=== PATIENT | male | born 1975 | race Caucasian/White ===

== ENCOUNTER 2020-01-04 10:42 | Outpatient (CLI) | payer OTHER, SELFPAY ==
--- NOTE | ~2020-01-04 | XR_ITS ---
EXAMINATION: XR chest 2V DATE: 01/04/2020 10:58 INDICATION: Pneumonia, unspecified, cough TECHNIQUE: PA and lateral views of the chest are obtained. COMPARISON: 06/09/2008 FINDINGS: The lungs are free of acute opacities. There is no pleural effusion or pneumothorax. The ca rdiomediastinal silhouette is normal. The visualized bones and soft tissues are unremarkable. IMPRESSION: 1. No acute cardiopulmonary abnormality. Reviewed, dictated and finalized at location A. EL DRIER
== END 2020-01-04 10:43 | disposition home or self-care (01) ==
PROVIDERS: PCP Family Medicine; Visit Provider Physician Assistant
DX: R05 Cough (principal)
CPT/HCPCS: 71046

== ENCOUNTER 2021-07-07 07:30 | Outpatient (RCR) | payer OTHER, SELFPAY ==
--- NOTE | 2021-06-23 09:43 | PTOPEVAL ---
PHYSICAL THERAPY EVALUATION AND PLAN OF CARE Thank you for referring Luis Dickens to [facility].? The patient is scheduled to be seen for therapy? 1-2x/week for 4 weeks. Please review, sign, date and return this plan of care LULI. I agree with and certify that the following plan of care is medically necessary. Referring Physician Date Attending Provider: Ignacio Graham MD Evaluation Diagnosis cervical radiculopathy Onset March 2021 Subjective Information Reports a pain that is between Query Text:As Reported By Patient/ the shoulder blade and spine Family on the left side. Initially was doing chiropractice, heat, and traction that provided temporary relief. He always felt better when he left, but the relief never last more than 24 hours. Gradually increasing over time and is worse now than in March. Self Report Pain Assessment Left Scapula Reported Pain Level 5 Pain Description Aching Pain Frequency Chronic,Continuous Lowest Pain Intensity 3 Greatest Pain Intensity 8 Pain Score Pain Score 5: Self Report Interventions Used Interventions Used By Clinicians Exercise,Joint Mobilization Pain Relief Interventions Used By None Patient Cervical and Lumbar ROM Cervical ROM Cervical Flexion (0-60) 40 Query Text:Active in Degrees Cervical Extension (0-70) 60 Query Text:Active in Degrees Cervical Rotation Right (0-90) 65 Query Text:Active in Degrees Cervical Rotation Left (0-90) 65 Query Text:Active in Degrees Upper Extremity Range of Motion General Upper Extremity Range of Motion Reason Not Measured WFL/Left,WFL/Right Upper Extremity Muscle Strength Testing Scapular/Shoulder Right Scapular Retraction - Rhomboid 4 Good Scapular Retraction - Middle Trapezius 4 Good Scapular Retraction - Lower Trapezius 4 Good Shoulder Flexion Strength 5 Normal Shoulder Abduction Strength 5 Normal Shoulder Medial Rotation Strength 5 Normal Shoulder Lateral Rotation Strength 5 Normal Left Scapular Retraction - Rhomboid 3 Fair Scapular Retraction - Middle Trapezius 3 Fair Scapular Retraction - Lower Trapezius 3 Fair Shoulder Flexion Strength 5 Normal Shoulder Abduction Strength 5 Normal Shoulder Medial Rotation Strength 5 Normal Shoulder Lateral Rotation Strength 4+ Good + Muscle Length Testing Muscle Length Testing Scalene Group Muscle Length (L) Moderate Tightness Query Text: Levaetor Scapulae Muscle Length (R) Mild Tightness,(L) Mild
--- NOTE | 2021-07-08 16:46 | PCPTNOTE ---
Patient called & cancelled scheduled appointment this date due to MD wanting MRI done.
--- NOTE | 2021-07-14 13:02 | PCPTNOTE ---
Called and cancelled appointments for this week and next stating that he is going to follow up with orthopedic doctor and will decide if he wants to continue PT after that.
--- NOTE | 2021-08-05 08:10 | PCPTNOTE ---
PHYSICAL THERAPY DISCHARGE NOTE Attending Provider: Ignacio Graham MD Patient:Luis Dickens Date of :1975 Patient has not returned for any further treatments since 07/07/2021, therefore (he/she) will be discharged at this time. Patient?s initial visit was on 06/23/2021. After his last attended visit, he cancelled his remaining appointments because he was going to get an MRI. I have not heard from patient since this time. Thank you for referring this patient to [facility]. Please review, sign, date and return this discharge summary LULI. I have been updated about the patient's current status and I agree with discharge from the above service at this time. Referring Physician Date
== END 2021-08-05 14:28 | disposition home or self-care (01) ==
LOC: ANHPT 07:30
PROVIDERS: PCP Family Medicine; Visit Provider Orthopaedic Surgery
DX: M54.2 Cervicalgia (principal)
CPT/HCPCS: 97014; 97110; 97140; 97162; G0283

== ENCOUNTER → 2021-07-09 06:58 | Outpatient (CLI) | payer OTHER, SELFPAY ==
--- NOTE | ~2021-07-09 | MR_ITS ---
EXAMINATION: MR thoracic spine wo con EXAM DATE: 07/09/2021 07:34 INDICATION: M54.9 - Dorsalgia, unspecified dorsalgia . Upper and mid back pain. TECHNIQUE: Multi-sequential, multiplanar MR images of the thoracic spine were obtained without contra st. Sagittal T1, T2, T2 fat saturation, axial T2 weighted images reviewed. There is no prior study for comparison. FINDINGS: Mild diffuse thoracic facet arthropathy. The thoracic discs are confined to their margins. The vertebral bodies are aligned in the AP dimension. Vertebral body and disc heights are well-mainta ined. There are no suspicious marrow signal abnormalities. The spinal cord signal intensity and intri nsic morphology is normal. Paraspinal soft tissue is unremarkable. No appreciable scoliosis. IMPRESSION: Mild thoracic facet arthropathy Reviewed, dictated and finalized at location B.
== END ==
PROVIDERS: PCP Family Medicine; Visit Provider Orthopaedic Surgery
DX: M54.9 Dorsalgia, unspecified (principal)
CPT/HCPCS: 72146

== ENCOUNTER → 2021-07-11 08:15 | Outpatient (CLI) | payer OTHER, SELFPAY ==
--- NOTE | ~2021-07-11 | US_ITS ---
EXAMINATION: US abdomen limited DATE: 07/11/2021 08:31 INDICATION: Left upper quadrant abdominal pain. Splenomegaly. TECHNIQUE: Multiple grayscale and Doppler ultrasound images of the abdomen were obtained. COMPARISON: CT abdomen and pelvis 09/19/2010 FINDINGS: The spleen is normal in size and measures 11.0 cm. IMPRESSION: 1. Normal spleen. Reviewed, dictated and finalized at location A. IMPRESSION: 1. Normal spleen.
== END ==
PROVIDERS: PCP Family Medicine; Visit Provider Family Medicine
DX: R16.1 Splenomegaly, not elsewhere classified (principal)
CPT/HCPCS: 76705

== ENCOUNTER → 2021-07-27 08:42 | Outpatient (CLI) | payer OTHER, SELFPAY ==
--- NOTE | ~2021-07-27 | MR_ITS ---
EXAMINATION: MR cervical spine wo con EXAM DATE: 07/27/2021 09:23 INDICATION: Cervicalgia, neck and upper back pain. Left shoulder pain. TECHNIQUE: Multi-sequential, multiplanar MR images of the cervical spine were obtained without contra st. Axial T2, axial T2 MERGE sequence. Sagittal T1, T2, T2 fat saturation images also obtained. Cor relation is made to cervical x-ray 06/02/2021. FINDINGS: Mild disc disease from C3 through C7. The spinal cord signal intensity and intrinsic morph ology is normal. Cervicomedullary junction is normal in appearance. There are no suspicious marrow si gnal abnormalities. Paraspinal soft tissue is unremarkable. Level by level evaluation: C2-C3: Disc does not extend beyond the endplate margin. Uncovertebral joint arthropathy: Mild right. Facet joint arthropathy: Mild bilateral. Neural foraminal stenosis: No stenosis. Central canal stenosis: No stenosis. C3-C4: There is a mild diffuse disc bulge. Uncovertebral joint arthropathy: Mild to moderate left, mild right. Facet joint arthropathy: Mild bilateral. Neural foraminal stenosis: Mild bilateral. Central canal stenosis: Mild. C4-C5: There is a minimal diffuse disc bulge. Uncovertebral joint arthropathy: Mild bilateral. Facet joint arthropathy: Mild bilateral. Neural foraminal stenosis: No stenosis. Central canal stenosis: No stenosis. C5-C6: There is a mild diffuse disc bulge asymmetric to the left, slightly indenting the left anterio r aspect of spinal cord but no cord edema. Uncovertebral joint arthropathy: Moderate bilateral. Facet joint arthropathy: Mild to moderate bilateral. Neural foraminal stenosis: Mild to moderate right, mild left. Central canal stenosis: Mild. C6-C7: There is a mild diffuse disc bulge. Uncovertebral joint arthropathy: Mild to moderate left, mild right. Facet joint arthropathy: Mild bilateral. Neural foraminal stenosis: Mild bilateral. Central canal stenosis: Mild. C7-T1: Disc does not extend beyond the endplate margin. Uncovertebral joint arthropathy: None. Facet joint arthropathy: Mild to moderate right, mild left. Neural foraminal stenosis: No stenosis. Central canal stenosis: No stenosis. IMPRESSION: 1. Mild to moderate cervical spondylosis. Reviewed, dictated and finalized at location B.
== END ==
PROVIDERS: PCP Family Medicine; Visit Provider Orthopaedic Surgery
DX: M47.892 Other spondylosis, cervical region (principal)
CPT/HCPCS: 72141

== ENCOUNTER 2022-03-29 04:27 | Emergency (ER) | payer OTHER, SELFPAY ==
[2022-03-29] VITALS (12 sets, daily range): BP systolic 116–146; BP diastolic 72–111; PULSE 67–85; RESP 15–16; TEMP 36.2; O2SAT 93–100
--- NOTE | ~2022-03-29 | CT_ITS ---
EXAMINATION: CT abdomen pelvis w con DATE: 03/29/2022 05:40 INDICATION: Right upper quadrant abdominal pain. TECHNIQUE: Computed tomography (CT) of the abdomen and pelvis was performed with 75 mL Omnipaque 300 intravenous contrast. Automated exposure control and iterative reconstruction technique were employed . The dose-length product was 1221.18 mGy-cm. COMPARISON: CT abdomen and pelvis 09/19/2010 FINDINGS: The visualized portions of the lung bases demonstrate mild atelectasis. No pleural effusion . The heart size is normal. No pericardial effusion. There is diffuse hepatic steatosis with focal sp aring in the gallbladder fossa. There are gallstones in the gallbladder including in the gallbladder neck. The gallbladder is at the upper limits of normal in size. The pancreas, spleen, adrenal glands, and left kidney are normal. There is a 12 mm cyst in right kidney. The prostate is moderately enlarg ed. There is diverticulosis of the colon without evidence of diverticulitis. There are no dilated loo ps of bowel. The appendix is normal. There are no pathologically enlarged lymph nodes. There is no fr ee intraperitoneal fluid. There are changes of umbilical hernia repair. There is mild thoracolumbar s pondylosis. IMPRESSION: 1. Cholelithiasis. 2. Diffuse hepatic steatosis. Reviewed, dictated and finalized at location A.
--- NOTE | ~2022-03-29 | US_ITS ---
EXAMINATION: US abdomen limited DATE: 03/29/2022 07:49 INDICATION: Right upper quadrant abdominal pain. TECHNIQUE: Multiple grayscale and Doppler ultrasound images of the abdomen were obtained. COMPARISON: CT abdomen and pelvis 03/29/2022 FINDINGS: The visualized portions of the head, body, and tail of the pancreas are normal. There is di ffuse hepatic steatosis with focal sparing in the gallbladder fossa. There are gallstones in the gall bladder, which is normal in size. No gallbladder wall thickening or sonographic Bowman sign. The comm on duct is normal and measures 4 mm. IMPRESSION: 1. Cholelithiasis. No evidence of acute cholecystitis. 2. Diffuse hepatic steatosis. Reviewed, dictated and finalized at location A.
[2022-03-29] MEDS: MORPHINE SULFATE (*CRX) 4 MG/ML INJ IV PUSH (04:43)
[2022-03-29] MEDS: SODIUM CHLORIDE 0.9% IV 1,000 ML 999 ML IV CONT (04:43)
--- NOTE | 2022-03-29 04:48 | ED.ABDPAIN ---
HPI - Abdominal Pain General Chief Complaint: Abdominal Pain Stated Complaint: right sided abdominal pain Time Seen by Provider: 03/29/22 04:36 Source: patient History of Present Illness HPI narrative: Patient presents with right upper quadrant pain. History he woke up around 2:00 with his symptoms these and try different body positions and counts alleviate symptoms and was unsuccessful as pain appear to be getting worse so he came to the ER for evaluation. Pain is sharp, constant, radiates to his back there are no clear aggravating or alleviating factors. Denies any nausea vomiting or diarrhea denies any recent fevers, cough, congestion denies any chest pain or shortness of breath. Related Data Home Medications Medication Instructions Recorded Confirmed fexofenadine 180 mg tablet 180 mg PO DAILY 06/02/21 03/17/22 melatonin 5 mg capsule 5 mg PO cap 06/02/21 03/17/22 Allergies Allergy/AdvReac Type Severity Reaction Status Date / Time No Known Allergies Allergy Mild Verified 03/29/22 04:38 Review of Systems Review of Systems: CONSTITUTIONAL: Denies fever, chills, or sweats. EYES: Denies visual changes, redness, or discharge. ENT: Denies rhinorrhea, congestion, sore throat, or otalgia. CARDIOVASCULAR: Denies chest pain, palpitations, or edema. RESPIRATORY: Denies cough or dyspnea. GASTROINTESTINAL: Denies nausea, vomiting, or diarrhea. GENITOURINARY: Denies dysuria or hematuria. SKIN: Denies rash or itching. MUSCULOSKELETAL: Denies back pain, joint pain, or myalgia. NEUROLOGIC: Denies headache, numbness, dizziness, or weakness. PSYCHIATRIC: Denies anxiety or depression. 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 HEAD: Normocephalic, atraumatic. EYES: PERRLA and EOMI. ENT: Nares clear, no rhinorrhea or epistaxis. Mucous membranes moist. NECK: Supple. No masses. No JVD ABDOMEN: Moderate tenderness in the right upper quadrant with guarding negative Bowman's soft,nondistended, EXTREMITIES: Normal range of motion. No edema. SKIN: Warm, dry, no rash. NEURO: No focal deficits. Alert and oriented x3. PSYCH: Normal mood and affect. Course Reevaluation(s) Reevaluation #1: Patient is feeling improved after supportive therapies patient was updated on work-up thus far. Patient is pending ultrasound evaluation due to his CT imaging findings. Patient was signed out to Dr. Irvin pending ultrasound. Date: 03/29/22 Time: 06:52 Vital Signs Vital signs: Vital Signs Temperature 36.2 C L 03/29/22 04:29 Pulse Rate 85 03/29/22 04:29 Respiratory Rate 16 03/29/22 04:29 Blood Pressure 146/94 H 03/29/22 04:29 Pulse Oximetry 100 03/29/22 04:29 Temperature 36.2 C L 03/29/22 04:29 Pulse Rate 85 03/29/22 04:29 Respiratory Rate 16 03/29/22 04:29 Blood Pressure 116/72 03/29/22 06:01 Pulse Oximetry 97 03/29/22 06:15 MDM - Abdominal Pain Lab Data Result diagra
[2022-03-29 04:57] LABS: Basophils Absolute Auto 0.1 K/mm3 (0.0-0.1); Basophils Percent Auto 0.8 % (0.2-1.2); Eosinophils Absolute Auto 0.2 K/mm3 (0-0.3); Eosinophils Percent Auto 2.6 % (0-4.4); Hematocrit 45.6 % (42.0-52.0); Hemoglobin 15.3 g/dL (14.0-18.0); Immature Granulocyte Absolute 0.04 K/mm3 (0.00-0.031); Immature Granulocyte Percent A 0.4 % (0-0.5); Lymphocytes Absolute Auto 1.91 K/mm3 (0.9-3.2); Lymphocytes Percent Auto 21.3 % (18.3-44.2); Mean Corpuscular HGB Conc 33.6 g/dl (32-36); Mean Corpuscular Volume 83.5 fl (80-100); Mean Platelet Volume 11.3 fl (7.4-10.4); Monocytes Absolute Auto 0.9 K/mm3 (0.1-0.6); Monocytes Percent Auto 9.9 % (2.6-8.5); Neutrophils Absolute Auto 5.8 K/mm3 (1.3-6.7); Platelet Count Result 236 k/mm3 (150-375); Red Blood Count 5.46 M/mm3 (4.6-6.20); Red Cell Distribution Width 13.6 % (11.5-14.5)
[2022-03-29 05:07] LABS: Alanine Aminotransferase 48 U/L (6-50); Albumin Level 4.2 g/dL (3.5-5.1); Alkaline Phosphatase 56 U/L (38-126); Anion Gap 8 mmol/L (8-16); Aspartate Amino Transferase 29 U/L (17-59); Bilirubin,Total 0.3 mg/dL (0.2-1.3); Blood Urea Nitrogen 16 mg/dL (9-20); Calcium 9.1 mg/dL (8.4-10.2); Carbon Dioxide 26 mmol/L (22-30); Chloride 108 mmol/L (98-107); Estimated CRCL calculation 97 ml/min; Estimated Glomerular Filt Rate > 60; Glucose 126 mg/dL (65-110); Lipase 210 U/L (23-300); Potassium 3.9 mmol/L (3.4-5.0); Sodium 142 mmol/L (137-145)
[2022-03-29 05:14] LABS: Appearance Urine Clear (Clear); Bilirubin Urine Negative (Negative); Blood Urine Negative (Negative); Color Urine Yellow (Yellow); Glucose Urine UA Negative (Negative); Ketones Urine Negative (Negative); Leukocyte Esterase Ur Negative LEU/UL (Negative); Nitrate Urine Negative (Negative); Protein Urine Negative (Negative); Specific Grav Ur >= 1.030 (1.001-1.035); Urobilinogen Urine 0.2 mg/dL (<2.0); pH Urine 5.5 (5.0-9.0)
[2022-03-29 05:25] LABS: RBC Urine 0-2 /hpf (0-2); WBC Urine 0-3 /hpf
[2022-03-29 05:26] LABS: Add Urine Microscopic? NO
--- NOTE | 2022-03-29 05:27 | PC.NURSE ---
Patient in CT at this time.
[2022-03-29] MEDS: ONDANSETRON INJ 4 MG/2 ML VIAL IV PUSH (05:38)
--- NOTE | 2022-03-29 07:30 | PC.NURSE ---
Pt to U/S via w/c at this time.
== END 2022-03-29 09:07 | disposition home or self-care (01) ==
PROVIDERS: Emergency Medicine; Emergency Provider Emergency Medicine; PCP Family Medicine
DX: R10.11 Right upper quadrant pain (principal); I10 Essential (primary) hypertension; E66.9 Obesity, unspecified; Z68.31 Body mass index [BMI] 31.0-31.9, adult
CPT/HCPCS: 36415; 74177; 76705; 80053; 81003; 83690; 85025; 96361; 96374; 96375; 99284; J2270; J2405; J7030; Q9967

== ENCOUNTER 2022-05-04 10:05 | Outpatient (CLI) | payer OTHER, SELFPAY ==
--- NOTE | 2022-05-04 10:11 | ECG_ITS ---
Measurements Intervals Berthold Rate: 78 P: 30 WV: 156 QRS: 27 QRSD: 113 T: 45 QT: 359 QTc: 410 Interpretive Statements SINUS RHYTHM INTRAVENTRICULAR CONDUCTION DELAY NO PREVIOUS ECG AVAILABLE FOR COMPARISON Electronically Signed On 05-04-2022 10:58:14 CDT by Neal Thurman M.D.
[2022-05-04 10:36] LABS: Amylase 88 U/L (30-110)
== END 2022-05-04 10:06 | disposition home or self-care (01) ==
LOC: ANHSURGERY 10:08
PROVIDERS: PCP Family Medicine; Visit Provider Surgery
DX: Z01.818 Encounter for other preprocedural examination (principal); K80.20 Calculus of gallbladder without cholecystitis without obstruction; I10 Essential (primary) hypertension; I45.9 Conduction disorder, unspecified
CPT/HCPCS: 36415; 82150; 86850; 86900; 86901; 93005

== ENCOUNTER 2022-05-07 02:17 | Day surgery (SDC) | payer OTHER, SELFPAY ==
[2022-05-03 12:16] VITALS: BMI 30.2
--- NOTE | 2022-05-03 12:17 | PC.NURSE ---
Addendum entered by Iona Guzman RN 05/04/22 07:51: MAY TAKE VENLAFAXINE MORNING OF SURGERY. Original Note: Report to the Outpatient Waiting Room, entrance under the green pavilion located off [address], at time _1230_ on date _[id number]_. OR Time: _230pm_. - You and your visitor will be asked a series of questions to screen for COVID 19 for your protection. - Only one visitor is allowed at this time. - The patient visitor is requested to leave or wait in car when not with patient. - A mask is required within the hospital. Patients may have clear liquids (water, carbonated beverages, clear teas, apple juice) until 3 hours prior to surgery with a maximum of 20 ounces. - No food from midnight until time of surgery Take the following medications with a SIP of water the morning of surgery: __None Medications to discontinue per physician ____None Date to take last dose Please no make-up, nail amharic, hairspray, perfume, deodorant, or body powder the day of surgery. No jewelry (including any body piercings) or valuables the day of surgery, leave them at home. Please take a shower or bath the night before, or the morning of, surgery with an antibacterial soap. Wear comfortable, loose fitting clothing. - Jewelry must be removed prior to entering the operating room. Rings and piercings that are not removed may be cut off. - The hospital will not accept responsibility for valuables. - Please leave all valuables, including medications, at home the day of surgery. If you are going home after surgery, a licensed class b truck driver must drive you home. - NO public transportation without another adult. - We recommend that an adult stay with you for 24 hours following discharge. - We also recommend that you do not drive, make important decision, drink alcoholic beverages, or take any drugs that were not prescribed by your health care provider for at least 24 hours after your discharge time. Follow any additional instructions given to you from your surgeon. If you or anyone in your household have experienced Covid symptoms in the past week, please notify your surgeon or the nurse liaison at the phone number below for possible testing. Telephone instructions given to ___Patient and asked if any additional questions and then verbalized understanding. Patient advised to call surgeon office or pre surgery nurse liaison [phone] if any additional questions.
[2022-05-07] VITALS (11 sets, daily range): BP systolic 111–137; BP diastolic 73–94; PULSE 69–99; RESP 15–19; TEMP 36.2–37.1; O2SAT 97–100
--- NOTE | 2022-05-07 13:08 | WPDANESEPPF ---
Anes - Initial Pre Proc Eval Procedure: Operation Date: 05/07/22 14:30 Proposed Procedures p Laparoscopic Cholecystectomy, Possible Open - Derick Painting DO Date/Time: 05/07/22 13:08 Surgeon: Derick Painting DO Pre Op Diagnosis: Symptomatic Cholelithiasis Patient Data Age: 46 Gender: M Height: 1.78 m Weight: 95.5 kg Allergies Allergy/AdvReac Type Severity Reaction Status Date / Time No Known Allergies Allergy Mild Verified 05/07/22 13:03 Home Medications Medication Instructions Recorded Confirmed Type omeprazole 40 mg capsule,delayed 40 mg PO QAM #90 caps 11/11/20 05/07/22 Rx release fenofibrate 160 mg tablet See Rx Instructions .Route 08/27/21 05/07/22 Rx .COMPLEX #90 tabs lisinopril 10 mg tablet See Rx Instructions .Route 08/27/21 05/07/22 Rx .COMPLEX #90 tabs venlafaxine 150 mg See Rx Instructions .Route 08/27/21 05/07/22 Rx capsule,extended release 24 hr .COMPLEX #90 caps ezetimibe 10 mg tablet See Rx Instructions .Route 11/18/21 05/07/22 Rx .COMPLEX #90 tabs testosterone cypionate 200 mg/mL 200 mg IM MONTHLY #10 mL 12/31/21 05/07/22 Rx intramuscular oil zolpidem 10 mg tablet 10 mg PO .qhs #30 tabs 05/03/22 05/07/22 Rx Patient hx anesthesia problems: none Family hx anesthesia problems: none Results Review: All pre-operative results and documents have been reviewed as part of the pre-operative evaluation. 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 Gender identity (if verbalized by the patient): Male Sexual Orientation (if Verbalized by the Patient): Straight or Heterosexual Spiritual care concerns: No Anes - Eval Final PreProcedure Day of Procedure 05/07/22 13:08 Patient weight: obese Heart: regular rate and rhythm Lungs: clear to auscultation Airway: Mallampati scale class II Neurological: alert and oriented Last oral intake: >/= 8 hours ASA classification: II Anesthetic plan: proceed Anesthesia type and monitoring: general ETT and standard monitoring Results Review: All pre-operative results and documents have been reviewed as part of the pre-operative evaluation. Informed Consent: The patient's anesthetic plan and its attendant risks and benefits were discussed with the patient/family/POA. Questions were solicited and answers provided to the satisfaction of the patient/family/POA.
[2022-05-07] MEDS: ACETAMINOPHEN 500 MG TABLET 1000 MG PO (13:10)
--- NOTE | 2022-05-07 13:48 | WPDHPUPDATE1 ---
History and Physical Update Update Date/Time: 05/07/22 13:48 History and Physical has been reviewed, including an updated exam of the patient. There are NO changes in the patient's condition. Risks, benefits, and alternatives have been discussed and questions answered. Patient agrees to proceed with procedure.
[2022-05-07] MEDS: KETOROLAC 15 MG/ML VIAL (*BKC) IV PUSH (13:51)
[2022-05-07] MEDS: LACTATED RINGERS 1,000 ML 30 ML IV CONT (13:51)
[2022-05-07] MEDS: ceFAZolin 2 GM/D5W 50 ML 2 GM/50 ML BAG IVPB (14:07)
[2022-05-07] MEDS: LIDO 1%/EPINEPHRINE 1:100,000 10 ML VIAL 20 ML INFILTRATE (14:26)
--- NOTE | 2022-05-07 14:54 | W.PM.PROC2 ---
Procedure Note - Detailed Date of Procedure 05/07/22 Pre-op Diagnosis Symptomatic Cholelithiasis Post-op Diagnosis Same Procedure Performed Laparoscopic Cholecystectomy Surgeon Derick Painting, DO Anesthesia General and Local (0.5% bupivacaine) Indications This is a 46-year-old man who presented for right upper quadrant abdominal pain. About 1 month ago he presented to the emergency department with acute onset of abdominal pain. CT and ultrasound showed evidence of cholelithiasis but no evidence of acute cholecystitis. He was then discharged from the emergency department and followed up in the office. Discussions were made with the patient about treatment options and decision was made to proceed with laparoscopic cholecystectomy, possible open. Findings Laparoscopic cholecystectomy was performed. The gallbladder had some mild wall thickening and contained several stones. The cystic duct appeared normal in size. No other significant abnormalities were noted. I inspected the periumbilical region and the previous umbilical hernia repair appeared to be intact. Mesh was visible within the abdominal cavity, but cannot rule out mesh within the preperitoneal space or onlay space. The gallbladder was removed and sent to the lab for pathology. Description of Procedure Procedure as well as risks, benefits, and alternatives were discussed with patient. Written consent was obtained and placed in chart prior to procedure. The patient was brought back to surgical suite. Patient was placed in supine position on operating table. Time-out was done to confirm patient and procedure. Patient was then intubated by the anesthesia department. Abdomen was prepped and draped in sterile fashion using chlorhexidine prep. 0.5% bupivacaine with epinephrine was infiltrated at each site of incision. A 5 millimeter incision was made near the umbilicus, and a 5 millimeter Optiview trocar was advanced through the abdominal layers under direct visualization. Once inside the abdominal cavity, carbon dioxide was insufflated to create a pneumoperitoneum. The camera was inserted and the abdomen was inspected. No immediate abnormalities were identified. The patient was placed in reverse Trendelenburg position and rotated slightly to the left. An 11 millimeter incision was made in the subxiphoid region, and an 11 millimeter trocar was inserted under direct visualization. Two 5 millimeter incisions were made in the right upper quadrant, and two 5 millimeter trocars were inserted under direct visualization. The gallbladder was identified and grasped at the fundus and retracted superiorly. It was then grasped at the infundibulum retracted laterally. Careful dissection around the neck of the gallbladder was performed using blunt dissection with a [place] grasper and hook electrocautery. The cystic duct was identified, and a window was created behind it. The cystic artery was also identified and a window was created behind it. The critical view of safety was identified, visualizing the cystic duct running directly into the neck of the gallbladder, and the cystic artery running directly into the wall of the gallbladder. A 5 millimeter clip professor criminal justice was then used to place 2 clips proximally and 1 clip distally on both the cystic duct and cystic artery. They were then both transected using endoscopic scissors. Once safely away from the nader hepatitis, the gallbladder was dissected free from the liver bed using hook electrocautery. Hemostasis was achieved along the way. The gallbladder was removed completely and then removed through the subxiphoid port. The liver bed was then inspected. Hemostasis appeared adequate, and our clips appeared secure. The area was gently irrigated with sterile saline. No other abnormalities were seen. The patient was flattened out in bed, and 1 final inspection was made around the abdominal cavity. The subxiphoid port was removed, and a Terry britt
[2022-05-07] MEDS: oxyCODONE HCL (*CRX) 5 MG TAB IR PO (15:50)
[2022-05-07] MEDS: ONDANSETRON INJ 4 MG/2 ML VIAL IV PUSH (16:08)
[2022-05-07] MEDS: fentaNYL CITRATE INJ (*CRX) 100 MCG/2 ML VIAL 25 MCG IV PUSH (16:17)
== END 2022-05-07 16:50 | disposition home or self-care (01) ==
PROVIDERS: PCP Family Medicine; Visit Provider Surgery
PROC: 0FT44ZZ Resection of Gallbladder, Percutaneous Endoscopic Approach (ICD-10-PCS; CPT 47562; principal; 2022-05-07 14:30)
DX: K80.10 Calculus of gallbladder with chronic cholecystitis without obstruction (principal); I10 Essential (primary) hypertension; E66.9 Obesity, unspecified; Z68.29 Body mass index [BMI] 29.0-29.9, adult
CPT/HCPCS: 47562; 36415; 82150; 86850; 86900; 86901; 88304; 93005; A9270; J0690; J1100; J1885; J2250; J2405; J2704; J2710; J3010; J7030; J7120

== ENCOUNTER 2022-10-11 09:40 | Outpatient (CLI) | payer OTHER, SELFPAY ==
--- NOTE | ~2022-10-11 | XR_ITS ---
XR chest 2V 10/11/2022 09:58 Indication: Cough Procedure: PA and lateral views of the chest Comparison: Comparison to multiple prior studies sequentially, with oldest reviewed study dated 01/2008. Findings: Heart size normal. No focal air space disease, pulmonary edema, pleural effusion or suspect ed pneumothorax. No acute osseous abnormality. There are cholecystectomy clips. Impression: 1: No acute cardiopulmonary disease. Reviewed, dictated and finalized at location A. ICIAN INVESTIGATOR Impression: 1: No acute cardiopulmonary disease.
== END 2022-10-11 09:41 | disposition home or self-care (01) ==
PROVIDERS: PCP Family Medicine; Visit Provider Physician Assistant
DX: R05.9 Cough, unspecified (principal)
CPT/HCPCS: 71046

== ENCOUNTER → 2022-11-25 16:19 | Outpatient (CLI) | payer OTHER, SELFPAY ==
--- NOTE | ~2022-11-25 | XR_ITS ---
EXAMINATION: XR_CERV2-3V_CR DATE: 11/25/2022 16:42 INDICATION: Cervical spondylosis. TECHNIQUE: 3 views of cervical spine on 4 radiographs were obtained. COMPARISON: Cervical spine MRI 07/27/2021 FINDINGS: Bone alignment is normal. Vertebral body heights are normal. There is mildly decreased disc height at C3-C4, C5-C6, and C6-C7. There is multilevel uncovertebral joint osteoarthritis, moderate bilaterally at C6-C7. The facet joints are unremarkable. There is mild central canal stenosis at C3-C 4, C5-C6, and C6-C7. No prevertebral soft tissue swelling. IMPRESSION: 1. Mild cervical spondylosis. Reviewed, dictated and finalized at location A. O COMMUNICATIONS SUPERINTENDENT
== END ==
PROVIDERS: PCP Family Medicine; Visit Provider Nurse Practitioner Family
DX: M47.812 Spondylosis without myelopathy or radiculopathy, cervical region (principal)
CPT/HCPCS: 72040

== ENCOUNTER → 2023-02-23 07:03 | Outpatient (CLI) | payer OTHER, SELFPAY ==
--- NOTE | ~2023-02-23 | MR_ITS ---
MRI of the cervical spine Clinical History: Cervicalgia Technique: Axial T2-weighted and gradient images, and sagittal T1-weighted, T2-weighted, and STIR jude ges were acquired. COMPARISON: 07/27/2021 Findings: There is no fracture or subluxation of the cervical spine. Osseous alignment is unchanged. No suspicious bone marrow signal abnormality seen. At C2-C3, there is minimal disc osteophyte complex. No spinal canal stenosis, cord compression, or ne ural foraminal narrowing. At C3-C4, there is mild disc osteophyte complex. There is minimal canal stenosis without wyatt cord c ompression. There is probable mild bilateral neural foraminal narrowing. At C4-C5, there is no significant disc bulge or herniation. No spinal canal stenosis, cord compressio n, or neural foraminal narrowing. At C5-C6, there is disc osteophyte complex with mild flattening the ventral cord, especially on the l eft side. There is left neural foraminal narrowing. Right neural foramen preserved. At C6-C7, there is minimal disc osteophyte complex. No wyatt spinal canal stenosis or cord compressio n. Bilateral neural foramina are preserved. No abnormal signal seen in the spinal cord. Paravertebral soft tissues are unremarkable. Impression: Mild ventral cord compression, especially on the left side, at C5-C6, related to disc osteophyte comp araseli. Minimal canal stenosis at C3-C4, without wyatt cord compression. Mild neural foraminal narrowing at the C3-C4 and C5-C6 levels, as detailed above. Reviewed, dictated and finalized at [facility]. Impression: Mild ventral cord compression, especially on the left side, at C5-C6, related t o disc osteophyte complex. Minimal canal stenosis at C3-C4, without wyatt cord compression. Mild neural foraminal narrowing at the C3-C4 and C5-C6 levels, as detailed robles quezada
== END ==
PROVIDERS: PCP Family Medicine; Visit Provider Neurological Surgery
DX: M54.2 Cervicalgia (principal)
CPT/HCPCS: 72141

== ENCOUNTER 2025-06-17 06:45 | Day surgery (SDC) | payer OTHER, SELFPAY ==
[2025-06-07 13:46] VITALS: BMI 29.4
--- OUTSIDE RECORDS SUMMARY | 2025-06-17 06:55 | XMS_ITS | Encounter Summary ---
Author Organization [facility] Address [address] [place] [address] Care Team Providers Care Motorcycle Fabricator Name Role Phone Kumar Duran DO Primary Care Provider Encounter Details Date Type Department Care Team (Latest Contact Info) Description 09/12/2018 Abstract [facility] , Santiago Mckeon MD Social History Tobacco Use Types Packs/Day Years Used Date Smoking Tobacco: Never Assessed Sex and Gender Information Value Date Recorded Sex Assigned at Not on file Legal Sex Male 11:05 PM CDT Gender Identity Not on file Sexual Orientation Not on file documented as of this encounter Plan of Treatment Not on file documented as of this encounter Visit Diagnoses Not on filedocumented in this encounter Care Teams Motorcycle Fabricator Relationship Specialty Start Date End Date Kumar Duran DO PCP - General 11/11/15 documented as of this encounter
--- OUTSIDE RECORDS SUMMARY | 2025-06-17 06:55 | XMS_ITS | Encounter Summary ---
Author Organization [facility] Address [address] [place] [address] Care Team Providers Care Utility Worker Film Processing Name Role Phone Wilton Ramirez MD Primary Care Provider [phone] Encounter Details Date Type Department Care Team (Late st Contact Info) Description 05/19/2022 Lab Requisition [facility] Care DermPath Lab [address] [place] [address] Mannie Higuera MD [address] [place] [address] Social History Tobacco Use Types Packs/Day Years Used Date Smoking Tobacco: Never Assessed Sex and Gender Information Value Date Recorded Sex Assigned at Not on file Legal Sex Male 6:56 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 Gender Identity Not on file Sexual Orientation Not on file documented as of this encounter Plan of Treatment Not on file documented as of this encounter Procedures Procedure Name Priority Date/Time Associated Diagnosis Comments DERMATOPATHOLOGY Routine 05/18/2022 3:33 AM CDT documented in this encounter Results * DERMATOPATHOLOGY (05/18/2022 3:33 AM CDT) Case Report Dermatopathology Report Case: [id number] Authorizing Provider: Mannie Higuera MD Collected: 05/18/2022 03:33 AM Ordering Location: [facility] Care DermPath Lab Received: 05/19/2022 12:22 PM Pathologist: Marimar Howell MD Specimens: A) - Skin, left ant axilla B) - Skin, right flexor prox forearm C) - Skin, right lateral base of neck D) - Skin, lateral to left nipple 2 3:10 PM T DERMATOPATHOLOGY LABORATORY Final Diagnosis Specimen A. SKIN, left ant axilla: ACROCHORDON (SOFT FIBROMA, SKIN TAG) (L91.8) Specimen B. SKIN, right flexor prox forearm: HEMANGIOMA (D18.01) Specimen C. SKIN, right lateral base of neck: ACROCHORDON (SOFT FIBROMA, SKIN TAG) (L91.8) (see microscopic description) Specimen D. SKIN, lateral to left nipple: BASAL CELL CARCINOMA, FIBROEPITHELIOMA TYPE (C44.519) 2 3:10 PM T DERMATOPATHOLOGY LABORATORY at 1510 CDT Clinical History A: R/O Dysplastic Nevus B: R/O Hemangioma vs. Other C: R/O Dysplastic Nevus D: R/O Allergic Dermatitis Bite, Nevus, vs. Other 2 3:10 PM CDT DERMATOPATHOLOGY LABORATORY Gross Description Specimen A: Received is one formalin filled container labeled with the patient's name and designated left ant axilla. The specimen consists of a shave biopsy measuring [id number]. Jar 0. Specimen B: Received is one formalin filled container labeled with the patient's name and designated right flexor prox forearm. The specimen consists of a shave biopsy measuring [id number]. Jar 0. Specimen C: Received is one formalin filled container labeled with the patient's name and designated right lateral base of neck. The specimen consists of a shave biopsy measuring [id number]. Jar 0. Specimen D: Received is one formalin filled container labeled with the patient's name and designated lateral to left nipple. The specimen consists of a punch biopsy measuring [id number]. Jar 0. 2 3:10 PM CDT DERMATOPATHOLOGY LABORATORY Microscopic Description Specimen A. SKIN, left ant axilla: There is a gently folded epidermis surrounding a connective tissue core. Specimen B. SKIN, right flexor prox forearm: In the dermis, there are dilated vascular spaces surrounded by widely spaced endothelial cells. Specimen C. SKIN, right lateral base of neck: There is a gently folded epidermis surrounding a connective tissue core. Additional deeper sections were obtained and reviewed. Specimen D. SKIN, lateral to left nipple: Embedded in a fibrous cellular stroma there are numerous anastomosing narrow strands of basaloid cells. In areas, the collections of basaloid cells show peripheral palisading. 2 3:10 PM CDT DERMATOPATHOLOGY LABORATORY Disclaimer An external and internal positive and negative controls are appropriate for the histochemical, immunohistochemical and immunofluorescence stain(s) in this case (if any), except where stated explicitly. The performance characteristics of the stain(s) cited in this report were developed and its performance characteristic determined by the Dermatopathology Laboratory at [facility], directed by Dr. Destin Berger. These tests need not be, and therefore are not, approved by the [place] Food and Drug Administration. The tests are used for clinical purposes. Billing Codes Specimen Charges Stain Charges 67349 [id number] 1 1 1 1 2 3:10 PM CDT DERMATOPATHOLOGY LABORATORY Embedded Images 2 3:10 PM CDT DERMATOPATHOLOGY LABORATORY Pathology/Cytology TISSUE SPECIMEN FROM SKIN / Unknown 05/18/2022 3:33 AM CDT 05/19/2022 12:22 PM CDT Miscellaneous samples (specimen) TISSUE SPECIMEN FROM SKIN / Unknown 05/18/2022 3:33 AM CDT 05/19/2022 12:22 PM CDT Miscellaneous samples (specimen) TISSUE SPECIMEN FROM SKIN / Unknown 05/18/2022 3:33 AM CDT 05/19/2022 12:22 PM CDT Miscellaneous samples (specimen) TISSUE SPECIMEN FROM SKIN / Unknown 05/18/2022 3:33 AM CDT 05/19/2022 12:22 PM CDT us Mannie Higuera MD LAB - PATHOLOGY/CYTOLOGY ORD ERABLES Final Result DERMATOPATHOLOGY LABORATORY [facility] - Department of Dermatology [address] [place] [address], [place] [phone] documented in this encounter Visit Diagnoses Not on filedocumented in this encounter Care Teams Utility Worker Film Processing Relationship Specialty Start Date End Date Wilton Ramirez MD [address] [place] [address] PCP - General 05/12/22 documented as of this encounter
--- OUTSIDE RECORDS SUMMARY | 2025-06-17 06:55 | XMS_ITS | Clinical Summary ---
Author Organization [facility] Address [address] [place] [place] [address] Care Team Providers Care Irrigationist Designer Name Role Phone Wilton Ramirez MD Primary Care Provider [phone] Source Comments [facility] Aff[facility]ates and Associated Physician Practices is amultiple site organization consisting of ambulatory clinics and hospital sitesin [place], [place], [place] and [place]. This disclosure is being madepursuant to the Care Everywhere program and may not contain all information available regarding this patient. 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 Gender Identity Not on file Sexual Orientation Not on file Last Filed Vital Signs Vital Sign Reading Time Taken Comments Blood Pressure 130/90 10/06/2017 3:19 PM BOW MACHINE OPERATOR Pulse 100 10/06/2017 3:19 PM BOW MACHINE OPERATOR Temperature 36.9 C (98.4 F) 10/06/2017 3:19 PM BOW MACHINE OPERATOR Respiratory Rate - - Oxygen Saturation 98% 10/06/2017 3:19 PM BOW MACHINE OPERATOR Inhaled Oxygen Concentration - - Weight 100.7 kg (222 lb) 10/06/2017 3:19 PM BOW MACHINE OPERATOR Height 176.5 cm (5' 9.5) 10/06/2017 3:19 PM BOW MACHINE OPERATOR Body Mass Index 32.31 10/06/2017 3:19 PM BOW MACHINE OPERATOR Plan of Treatment Health Maintenance Due Date Last Done Comments SANDRA (AGES 45-75) - COL ON CA SCREENING 1975 COLON MONITORING 1975 COLONOSCOPY - COLON CA SCREENING 1975 CT COLONOGRAPHY - COLON CA SCREENING 1975 Colorectal Cancer Screening 1975 FIT - COLON CA SCREENING 1975 FLEX SIG - COLON CA SCREENING 1975 LIPID TESTING 1975 HIV SCREENING 1990 HEPATITIS C SCREENING 07/26/1993 DTAP/TDAP/TD VACCINES (1 - Tdap) 1994 HEPATITIS B VACCINE (1 of 3 - 19+ 3-dose series) 1994 COVID-19 VACCINE (1 - 2023-2 5 season) 2024 DEPRESSION SCREENING 11/07/2024 INFLUENZA VACCINE (#1) 2025 07/21/2017 ZOSTER VACCINE (1 of 2) 2025 HIB VACCINE Aged Out No longer eligi ble based on patient's age to complete this topic HPV VACCINE Aged Out No longer eligi ble based on patient's age to complete this topic MENINGOCOCCAL (Group B) VACC INE SHARED DECISION-MAKING Aged Out No longer eligibl e based on patient's age to complete this topic MENINGOCOCCAL GROUPS A/C/Y/W VACCINE Aged Out No longer eligible b ased on patient's age to complete this topic Insurance [employer] Care Teams Irrigationist Designer Relationship Specialty Start Date End Date Wilton Ramirez MD [address] [place] [address] PCP - General 05/12/22
--- OUTSIDE RECORDS SUMMARY | 2025-06-17 06:55 | XMS_ITS | Clinical Summary ---
Author Organization [facility] Address [address] [place] [address] Care Team Providers Care Barrel Loader Name Role Phone GramercyKumar asif Primary Care Provider Social History Tobacco Use Types Packs/Day Years Used Date Smoking Tobacco: Never Assessed Sex and Gender Information Value Date Recorded Sex Assigned at Not on file Legal Sex Male 11:05 PM CDT Gender Identity Not on file Sexual Orientation Not on file Last Filed Vital Signs Vital Sign Reading Time Taken Comments Blood Pressure 130/82 11/17/2016 8:46 AM DOCUMENT MANAGEMENT SPECIALIST Pulse 72 11/11/2015 8:03 AM DOCUMENT MANAGEMENT SPECIALIST Temperature - - Respiratory Rate - - Oxygen Saturation - - Inhaled Oxygen Concentration - - Weight 100.2 kg (221 lb) 11/17/2016 8:46 AM DOCUMENT MANAGEMENT SPECIALIST Height 176.5 cm (5' 9.5) 11/17/2016 8:46 AM DOCUMENT MANAGEMENT SPECIALIST Body Mass Index 32.17 11/17/2016 8:46 AM DOCUMENT MANAGEMENT SPECIALIST Plan of Treatment Health Maintenance Due Date Last Done Comments Colorectal Cancer Screening Colonoscopy (10 Years) 1975 Annual Physical 1978 Hepatitis C 1993 Hepatitis B Vaccines (1 of 3 - 19+ 3-dose series) 1994 DTaP, Tdap and Td Vaccines (4 - Td or Tdap) 07/08/2021 07/08/2011, 08/07/2008, 06/21/2005, Additional history exists COVID-19 Vaccine (2023- season) 2024 Pneumococcal Vaccine: Pediatrics (0 to 5 Years) and At-Risk Patients (6 to 49 Years) Aged Out 09/22/2007 No longer eligible based on patient's age to complete this topic Meningococcal B Vaccine Aged Out No l onger eligible based on patient's age to complete this topic Meningococcal Vaccine Aged Out No arley yuliya eligible based on patient's age to complete this topic RSV Immunizations Under 20 Months Aged Out No longer eligible based on patient's age to complete this topic Care Teams Barrel Loader Relationship Specialty Start Date End Date Kumar Duran DO PCP - General 11/11/15
[2025-06-17 07:13] VITALS: BMI 29.1
[2025-06-17 07:15] VITALS: BP 120/99; PULSE 85; RESP 16; TEMP 36.4; O2SAT 99
[2025-06-17] MEDS: LACTATED RINGERS 1,000 ML 150 ML IV CONT (07:25)
--- NOTE | 2025-06-17 07:25 | WPDANESEPPF ---
Anes - Initial Pre Proc Eval Procedure: Operation Date: 06/17/25 08:30 Proposed Procedures p Screening Colonoscopy - Mina Cabrera MD Date/Time: 06/17/25 07:25 Surgeon: Mina Cabrera MD Pre Op Diagnosis: Neoplasm Screening Patient Data Age: 49 Gender: M Height: 1.78 m Weight: 92.1 kg Last Vital Signs Temp 97.6 F 06/17/25 07:15 Pulse 85 06/17/25 07:15 Resp 16 06/17/25 07:15 BP 120/99 H 06/17/25 07:15 Pulse Ox 99 06/17/25 07:15 O2 Del Method Room Air 06/17/25 07:15 Allergies Allergy/AdvReac Type Severity Reaction Status Date / Time No Known Allergies Allergy Mild Verified 06/07/25 13:43 Home Medications ?Medication ?Instructions ?Recorded ?Confirmed ?Type albuterol sulfate 90 mcg/actuation 1 puff inhalation Q4-6H PRN 11/29/22 06/17/25 Rx aerosol inhaler shortness of breath or wheezing #8.5 grams omeprazole 20 mg capsule,delayed 20 mg PO DAILY 01/18/25 06/17/25 History release zolpidem 10 mg tablet 10 mg PO QHS #90 tabs 04/15/25 06/17/25 Rx valsartan 160 mg tablet 160 mg PO DAILY #90 tabs 05/13/25 06/17/25 Rx ezetimibe 10 mg tablet 10 mg PO DAILY 06/07/25 06/17/25 History fenofibrate 160 mg tablet 160 mg PO DAILY 06/07/25 06/17/25 History venlafaxine 150 mg 150 mg PO DAILY 06/07/25 06/17/25 History capsule,extended release 24 hr Patient hx anesthesia problems: none Family hx anesthesia problems: none Results Review: All pre-operative results and documents have been reviewed as part of the pre-operative evaluation. [facility] Past Medical History Medical History Hypertension Neck pain Obesity Surgical History Surgical History History of umbilical hernia History of vasectomy Hx laparoscopic cholecystectomy 05/07/22 Family History Family History Father Family history of malignant neoplasm Malignant neoplasm of prostate Mother Diabetes mellitus Social History Social History Social History: Smoking status: Never smoker Second hand tobacco smoke exposure: No Alcohol intake: never Alcohol use details: Once a month Substance use: never Substance use type: does not use Living arrangements: with family Occupation/Education: 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 Informed Consent: The patient's anesthetic plan and its attendant risks and benefits were discussed with the patient/family/POA. Questions were solicited and answers provided to the satisfaction of the patient/family/POA.
--- NOTE | 2025-06-17 07:40 | WPDANESPN ---
Anes - Prog Note Post-Op Date/Time: 06/17/25 07:40 Vital Signs: Last Vital Signs Temp 97.6 F 06/17/25 07:15 Pulse 85 06/17/25 07:15 Resp 16 06/17/25 07:15 BP 120/99 H 06/17/25 07:15 Pulse Ox 99 06/17/25 07:15 O2 Del Method Room Air 06/17/25 07:15 Pain Score (VAS): no Patient Feedback: Patient satisfied with anesthetic care.
--- NOTE | 2025-06-17 08:06 | HP_ITS ---
This report was moved to the correct visit on 06/20/2025. The original report was signed by Mina Cabrera MD on 06/17/25 0806. H&P: HPI History of Present Illness Date/Time: 06/17/25 08:05 Chief Complaint: Screening colonoscopy Narrative: This is the patient's first colonoscopy. There are no GI symptoms and there is no family history of colorectal cancer. Review of Systems Review of Systems: All systems reviewed & are unremarkable except as noted in HPI and below PMFSH Past Medical History Medical History Hypertension Neck pain Obesity Surgical History Surgical History History of umbilical hernia History of vasectomy Hx laparoscopic cholecystectomy 05/07/22 Family History Family History Father Family history of malignant neoplasm Malignant neoplasm of prostateMother Diabetes mellitus Social History Social History Social History: Smoking status: Never smoker Second hand tobacco smoke exposure: No Alcohol intake: never Alcohol use details: Once a month Substance use: never Substance use type: does not use Living arrangements: with family Occupation/Education: occupation 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 Gender identity (if verbalized by the patient): Male Sexual Orientation (if Verbalized by the Patient): Straight or Heterosexual Spiritual care concerns: No Meds Home Medications and Allergies Home Medications ?Medication ?Instructions ?Recorded ?Confirmed ?Type albuterol sulfate 90 mcg/actuation 1 puff inhalation Q4-6H PRN 11/29/22 06/17/25 Rx aerosol inhaler shortness of breath or wheezing #8.5 grams omeprazole 20 mg capsule,delayed 20 mg PO DAILY 01/18/25 06/17/25 History release zolpidem 10 mg tablet 10 mg PO QHS #90 tabs 04/15/25 06/17/25 Rx valsartan 160 mg tablet 160 mg PO DAILY #90 tabs 05/13/25 06/17/25 Rx ezetimibe 10 mg tablet 10 mg PO DAILY 06/07/25 06/17/25 History fenofibrate 160 mg tablet 160 mg PO DAILY 06/07/25 06/17/25 History venlafaxine 150 mg 150 mg PO DAILY 06/07/25 06/17/25 History capsule,extended release 24 hr Allergies Allergy/AdvReac Type Severity Reaction Status Date / Time No Known Allergies Allergy Mild Verified 06/07/25 13:43 Exam Const: General: cooperative and healthy appearing Resp: Effort & Inspection: normal respiratory effort and able to speak in complete sentences Auscultation: clear to auscultation bilaterally Cardio: Rate: regular rate Rhythm: regular rhythm GI: Inspection: normal to inspection GI Palp: No No hepatosplenomegaly present Auscultation: normal bowel sounds Rectal Exam: deferred Skin: General skin exam: normal color Psych: Appearance: grossly normal Mental Status: mental status grossly normal Assessment and Plan Assessment and plan (1) Encounter for screening colonoscopy: Code(s): Z12.11 - Encounter for screening for malignant neoplasm of colon Status: Acute Assessment and Plan: The patient is deemed a good candidate for the procedure. Consent signed. Will proceed. Please be advised this is a medical document. It is intended for cwqy-[id number] communication. It is written in medical language and may contain unfamiliar abbreviations or verbiage. Medical documents are intended to carry relevant information, facts as evident, and the clinical opinion of the practitioner at the time of the encounter. This report may have been done utilizing a voice recognition system. Attempts have been made to correct errors. However, there may be uncorrected grammatical, spelling, and recognition errors present. The file time of this note does not necessarily represent the time the patient was seen. Report Initialized date/time: Mina Cabrera MD 06/17/25805 Electronically signed by: Mina Cabrera MD 06/17/25805
--- NOTE | 2025-06-17 08:19 | WPDANESPN ---
Anes - Prog Note Post-Op Date/Time: 06/17/25 08:19 Vital Signs: Last Vital Signs Temp 97.6 F 06/17/25 07:15 Pulse 85 06/17/25 07:15 Resp 16 06/17/25 07:15 BP 120/99 H 06/17/25 07:15 Pulse Ox 99 06/17/25 07:15 O2 Del Method Room Air 06/17/25 07:15 Pain Score (VAS): no Patient Feedback: Patient satisfied with anesthetic care.
[2025-06-17 08:30] VITALS: BP 116/83; PULSE 77; RESP 16; O2SAT 96
[2025-06-17 08:40] VITALS: BP 114/80; PULSE 88; RESP 18; O2SAT 98
[2025-06-17 08:50] VITALS: BP 114/80; PULSE 88; RESP 18; O2SAT 98
== END 2025-06-17 09:10 | disposition home or self-care (01) ==
PROVIDERS: PCP Family Medicine; Visit Provider Internal Medicine Gastroenterology
PROC: 0DJD8ZZ Inspection of Lower Intestinal Tract, Via Natural or Artificial Opening Endoscopic (ICD-10-PCS; CPT 45378; principal; 2025-06-17 08:30)
DX: Z12.11 Encounter for screening for malignant neoplasm of colon (principal)
CPT/HCPCS: 45378

== ENCOUNTER 2025-08-25 09:06 | Emergency (ER) | payer OTHER, SELFPAY ==
--- OUTSIDE RECORDS SUMMARY | 2025-08-25 09:10 | XMS_ITS | Clinical Summary ---
Author Organization [facility] Address [address] [place] [address] Care Team Providers Care Fire Alarm Inspector Name Role Phone Wilton Ramirez MD Primary Care Provider Source Comments [facility] Affiliates and Associated Physician Practices is amultiple site organization consisting of ambulatory clinics and hospital sitesin [place], [place], [place] and [place]. This disclosure is being madepursuant to the Care Everywhere program and may not contain all information available regarding this patient. Last updated 18.[facility] Social History Tobacco Use Types Packs/Day Years Used Date Smoking Tobacco: Never Assessed Sex and Gender Information Value Date Recorded Sex Assigned at Not on file Legal Sex Male 6:56 AM AIR POLLUTION INSPECTOR Gender Identity Not on file Sexual Orientation Not on file Last Filed Vital Signs Vital Sign Reading Time Taken Comments Blood Pressure 130/90 10/06/2017 3:19 PM AIR POLLUTION INSPECTOR Pulse 100 10/06/2017 3:19 PM AIR POLLUTION INSPECTOR Temperature 36.9 C (98.4 F) 10/06/2017 3:19 PM AIR POLLUTION INSPECTOR Respiratory Rate - - Oxygen Saturation 98% 10/06/2017 3:19 PM AIR POLLUTION INSPECTOR Inhaled Oxygen Concentration - - Weight 100.7 kg (222 lb) 10/06/2017 3:19 PM AIR POLLUTION INSPECTOR Height 176.5 cm (5' 9.5) 10/06/2017 3:19 PM AIR POLLUTION INSPECTOR Body Mass Index 32.31 10/06/2017 3:19 PM AIR POLLUTION INSPECTOR Plan of Treatment Health Maintenance Due Date [...] of 3 - 19+ 3-dose series) 1994 DEPRESSION SCREENING 11/07/2024 COVID-19 VACCINE (1 - 2023-2 5 season) 2025 INFLUENZA VACCINE (#1) 2025 07/21/2017 PNEUMOCOCCAL VACCINE 50+ (1 of 1 - PCV) 2025 ZOSTER VACCINE (1 of 2) 2025 HIB [...] complete this topic Insurance [employer] Care Teams Fire Alarm Inspector Relationship Specialty Start Date End Date Wilton Ramirez MD [address] [place] [address] PCP - General 05/12/22
--- OUTSIDE RECORDS SUMMARY | 2025-08-25 09:10 | XMS_ITS | Encounter Summary ---
Author Organization [facility] Address [address] [place] [address] Care Team Providers Care Ballistics Teacher Name Role Phone Wilton Ramirez MD Primary Care Provider Encounter Details Date Type Department Care Team (Late st Contact Info) Description 05/19/2022 Lab Requisition [facility] Care DermPath Lab [address] [place] [address] Mannie Higuera MD [address] [place] [address] Social History Tobacco Use Types Packs/Day Years Used Date Smoking Tobacco: Never Assessed Sex and Gender Information Value Date Recorded Sex Assigned at Not on file Legal Sex Male 6:56 AM [employer] Gender Identity Not on file Sexual Orientation Not on file documented as of this encounter Plan of Treatment Not on file documented as of this encounter Procedures Procedure Name Priority Date/Time Associated Diagnosis Comments DERMATOPATHOLOGY Routine 05/18/2022 3:33 AM CDT documented in this encounter Results * DERMATOPATHOLOGY (05/18/2022 3:33 AM CDT) Case Report Dermatopathology Report Case: [id number] Authorizing Provider: Mannie Higuera MD Collected: 05/18/2022 03:33 AM Ordering Location: [facility] Care DermPath Lab Received: 05/19/2022 12:22 [...] specimen consists of a shave biopsy measuring [id number]. Jar 0. Specimen B: Received is one formalin filled container labeled with the patient's name and designated right flexor prox forearm. The specimen consists of a shave biopsy measuring [id number]. Jar 0. Specimen C: Received is one formalin filled container labeled with the patient's name and designated right lateral base of neck. The specimen consists of a shave biopsy measuring [id number]. Jar 0. Specimen D: Received is one formalin filled container labeled with the patient's name and designated lateral to left nipple. The specimen consists of a punch biopsy measuring [id number]. Jar 0. 2 3:10 PM CDT DERMATOPATHOLOGY [...] characteristic determined by the Dermatopathology Laboratory at [facility], directed by Dr. Destin Berger. These tests need not be, and therefore are not, approved by the [place] Food and Drug Administration. The tests are used for clinical purposes. Billing Codes Specimen Charges Stain Charges 45373 [id number] 1 1 1 1 2 3:10 PM [...] PATHOLOGY/CYTOLOGY ORD ERABLES Final Result DERMATOPATHOLOGY LABORATORY [facility] - Department of Dermatology [address] [place] [address], [facility] [phone] documented in this encounter Visit Diagnoses Not on filedocumented in this encounter Care Teams Ballistics Teacher Relationship Specialty Start Date End Date Wilton Ramirez MD [address] [place] [address] PCP - General 05/12/22 documented as of this encounter
--- NOTE | 2025-08-25 09:13 | ED.MALEGU ---
HPI - Male Genitourinary General Chief complaint: Urogenital-Male Stated complaint: UTI Patient presents to the [facility] accompanied by spouse with complaints of frequent urination and right lower abdominal pain. Patient does report pain is getting slightly worse and does feel like an aching with occasional sharp shooting pain. Patient does also report intermittently does have some pain in the right testicle. Denies any swelling in the testicle, unable to urinate, blood in urine, blood in semen, penile discharge, concern for STDs, nausea, vomiting, diarrhea. No medication remedies attempted for symptoms. Patient does report about 10 years ago having a prostate problem this was enlarged was placed on medication in this corrected the problem has not had any thing since recently had a negative PSA also noted recent colonoscopy that was negative as well Related Data Home Medications ?Medication ?Instructions ?Recorded ?Confirmed ?Last Taken ?Type omeprazole 20 mg capsule,delayed 20 mg PO DAILY 01/18/25 08/25/25 06/16/25 History release ezetimibe 10 mg tablet 10 mg PO DAILY 06/07/25 08/25/25 06/16/25 History fenofibrate 160 mg tablet 160 mg PO DAILY 06/07/25 08/25/25 06/16/25 History venlafaxine 150 mg 150 mg PO DAILY 06/07/25 08/25/25 06/16/25 History capsule,extended release 24 hr Allergies Allergy/AdvReac Type Severity Reaction Status Date / Time No Known Allergies Allergy Mild Verified 06/07/25 13:43 Review of Systems Constitutional: Constitutional: Reports as per HPI, Denies chills, Denies fatigue, Denies fever(s) and Denies weakness Eyes: Eyes: Reports no additional eye complaints ENT: Reports system reviewed and no additional complaints, except as documented Cardiovascular: Cardiovascular: Reports no additional cardiovascular complaints Respiratory: Respiratory: Reports no additional respiratory complaints Gastrointestinal: Gastrointestinal: Reports as per HPI, Reports abdominal pain, Denies bloating, Denies constipation, Denies heartburn, Denies diarrhea, Denies nausea and Denies vomiting Genitourinary: Genitourinary: Reports as per HPI, Denies hematuria, Denies oliguria, Denies genital lesions, Reports dysuria, Denies penile discharge, Reports testicular pain, Reports urinary frequency and Denies urinary incontinence Musculoskeletal: Musculoskeletal: Reports as per HPI, Denies back pain and Denies myalgias Integumentary/Breasts: Skin/Breast: Reports as per HPI, Denies erythema and Denies rash Neurologic: Reports as per HPI, Denies headache(s), Denies numbness and Denies weakness Psychiatric: Psychiatric: Reports no additional psychiatric complaints Endocrine: Endocrine: Reports no additional endocrine complaints Hematologic/Lymphatic: Hematologic/Lymphatic: Reports no additional hematologic/lymphatic complaints Allergic/Immunologic: Allergic/Immunologic: Reports no additional allergic/immunologic complaints COUNT INCLUDES THE [facility] Past Medical History Medical History Hypertension Neck pain Obesity Surgical History Surgical History History of umbilical hernia History of vasectomy Hx laparoscopic cholecystectomy 05/07/22 Family History Family History Father Family history of malignant neoplasm Malignant neoplasm of prostate Mother Diabetes mellitus Social History Social History Social History: Smoking status: Never smoker Second hand tobacco smoke exposure: No Alcohol intake: never Alcohol use details: Once a month Substance use: never Substance use type: does not use Living arrangements: with family Occupation/Education: occupation 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 Gender identity (if verbalized by the patient): Male Sexual Orientation (if Verbalized by the Patient): Straight or Heterosexual Spiritual care concerns: No Exam Const: General: healthy appearing and no acute distress Nutritional Appearance: well nourished Limitations: no limitations Resp: Effort & Inspection: normal respiratory effort Auscultation: clear to auscultation bilaterally Cardio: Rate: regular rate Rhythm: regular rhythm GI: Inspection: non-distended GI Palp: Yes Soft to palpation, No Tenderness to palpation present (GI), No Guarding due to palpation present (GI), No Rigid due to palpation, No Hernia present, No Palpable mass present and No Rebound tenderness present Auscultation: normal bowel sounds : General: Yes bladder normal to palpation and Yes no CVA tenderness Male General Exam: Yes normal external exam Penis: Yes normal penis Scrotum: scrotum normal Testes: epididymal tenderness on the right, no testicular swelling and testicular tenderness on the right Other: no edema, erythema, ecchymosis to scrotum. cremaster reflex positive. spouse present for exam Back/Spine/Pelvis: Back: no CVA tenderness Skin: General skin exam: normal color Rashes: no rashes Wounds: no wounds Neuro: General: patient oriented x3 Speech: normal speech Gait exam (Neuro): Normal gait present Psych: Mental Status: mental status grossly normal Affect: normal affect Attitude: cooperative Course Course Level of Care: Express Care Visit MDM - Male Genitourinary MDM Narrative Medical decision making narrative: Long discussion with patient and spouse about symptoms. Given the location of the testicle pain without any other obvious worrisome symptoms this could be epididymitis. Also spoke with patient and spouse about other possible options and transfer to emergency room for evaluation with ultrasound of scrotum and testicles for full evaluation. Patient would like to try antibiotics and Pyridium in go to the emergency room if any testicular pain gets worse. Spoke with patient about potential for permanent damage with waiting. Patient also plans to follow-up with primary care tomorrow to get outpatient ultrasound if no relief of symptoms. The patient was evaluated by myself in the express care. History is obtained from patient who is an independent historian and physical exam was performed. Available medical records were reviewed at this time. Exam findings show no acute concerns or changes; patient is non-toxic appearing and is in no distress. Patient is appropriate for outpatient treatment and follow-up. I have evaluated and discussed social determinants of health with the patient that could potentially impact subsequent diagnosis and treatment plans. Differential diagnosis and treatment plan were discussed with the patient. Patient agrees with discussion and after shared medical decision making agrees with plan of care. All questions were answered to the patient's satisfaction. Differential Diagnosis Differential diagnosis: Likely urinary tract infection, urethritis, epididymitis, prostatitis and inguinal hernia Medical Records Attestation: I reviewed the patient's medical records. Lab Data Attestation: I reviewed the patient's lab results. Discharge Plan Discharge Clinical Impression: Urinary frequency, Orchitis of right testicle Patient Disposition: Home Condition: Stable Instructions: Antibiotic Form, Epididymitis (ED), Epididymo-Orchitis (ED), Scrotal Pain (ED) Additional Instructions: It does not show any significant urinary tract infection in our testing at urgent care we will send off culture for further testing of this urine. Given the length of time of pain in area of pain would recommend follow-up with primary care physician or urologist for an ultrasound of the scrotum and testicles if pain gets any worse or you begin to notice limited urination, trouble starting a urine stream, increased abdominal pain, fever, chills, body aches, or blood in urine go to the emergency room as soon as possible for evaluation. Patient Language: [place] Prescriptions: New phenazopyridine [Pyridium] 200 mg tablet 200 mg PO TID Qty: 6 0RF doxycycline monohydrate 100 mg capsule 100 mg PO BID Qty: 20 0RF No Action omeprazole 20 mg capsule,delayed release(DR/EC) 20 mg PO DAILY valsartan 160 mg tablet 160 mg PO DAILY Qty: 90 2RF zolpidem 10 mg tablet 10 mg PO QHS Qty: 30 2RF venlafaxine 150 mg capsule,extended release 24hr 150 mg PO DAILY Rx Instructions: TAKE 1 CAPSULE DAILY ezetimibe 10 mg tablet 10 mg PO DAILY Rx Instructions: TAKE 1 TABLET DAILY fenofibrate 160 mg tablet 160 mg PO DAILY Rx Instructions: TAKE 1 TABLET DAILY Follow-up/Referrals: Wilton Ramirez MD [Primary Care Provider, Family Practice] Time of Disposition: 09:36
[2025-08-25 09:15] VITALS: BP 129/90; PULSE 89; RESP 18; TEMP 35.8; O2SAT 97
[2025-08-25 09:23] LABS: EDUAAPPEAR Clear; EDUABILI Negative (Negative); EDUABLOOD Negative (Negative); EDUACOLOR1 Yellow; EDUAGLUCOSE Negative (Negative); EDUAKETONE Negative (Negative); EDUALEUKO Negative (Negative); EDUANITRATE Negative (Negative); EDUAPH 6.5; EDUAPROTEIN Negative (Negative); EDUASPGRAVITY 1.015; EDUAUROBILI 0.2
== END 2025-08-25 09:41 | disposition home or self-care (01) ==
PROVIDERS: Emergency Provider Nurse Practitioner Family; PCP Family Medicine
DX: R35.0 Frequency of micturition (principal); N45.2 Orchitis; I10 Essential (primary) hypertension
CPT/HCPCS: 81003; 87086; 99213; G0463